=== PATIENT | male | born 1950 | race Two or more races ===

== ENCOUNTER 2023-04-09 10:16 | Outpatient (RCR) | payer OTHER, SELFPAY | END 2023-04-09 23:59 | disposition home or self-care (01) | LOC: RPT 10:16 | PROVIDERS: ATTENDING PHYSICIAN Family Medicine | DX: R26.9 Unspecified abnormalities of gait and mobility (principal); Z73.6 Limitation of activities due to disability; M62.81 Muscle weakness (generalized) | CPT/HCPCS: 97110; 97112; 97162 ==

== ENCOUNTER 2023-05-09 15:05 | Outpatient (RCR) | payer OTHER, SELFPAY | END 2023-05-09 23:59 | disposition home or self-care (01) | LOC: RPT 15:05 | PROVIDERS: ATTENDING PHYSICIAN Family Medicine | DX: R26.9 Unspecified abnormalities of gait and mobility (principal); Z73.6 Limitation of activities due to disability | CPT/HCPCS: 97110; 97112 ==

== ENCOUNTER 2023-05-22 16:08 | Outpatient (RCR) | payer OTHER, SELFPAY | END 2023-05-22 23:59 | disposition home or self-care (01) | LOC: RPT 16:08 | PROVIDERS: ATTENDING PHYSICIAN Family Medicine | DX: R26.9 Unspecified abnormalities of gait and mobility (principal); Z73.6 Limitation of activities due to disability | CPT/HCPCS: 97110; 97112 ==

== ENCOUNTER 2023-07-04 16:09 | Outpatient (RCR) | payer OTHER, SELFPAY | END 2023-07-04 23:59 | disposition home or self-care (01) | LOC: RPT 16:09 | PROVIDERS: ATTENDING PHYSICIAN Family Medicine | DX: R26.9 Unspecified abnormalities of gait and mobility (principal); Z73.6 Limitation of activities due to disability | CPT/HCPCS: 97110; 97112 ==

== ENCOUNTER 2023-08-08 16:28 | Outpatient (RCR) | payer OTHER, SELFPAY | END 2023-08-08 23:59 | disposition home or self-care (01) | LOC: RPT 16:28 | PROVIDERS: ATTENDING PHYSICIAN Family Medicine | DX: R26.9 Unspecified abnormalities of gait and mobility (principal); Z73.6 Limitation of activities due to disability | CPT/HCPCS: 97110; 97112 ==

== ENCOUNTER 2023-09-05 15:19 | Outpatient (RCR) | payer OTHER, SELFPAY | END 2023-09-05 23:59 | disposition home or self-care (01) | LOC: RPT 15:19 | PROVIDERS: ATTENDING PHYSICIAN Family Medicine | DX: R26.89 Other abnormalities of gait and mobility (principal); Z73.6 Limitation of activities due to disability; R26.2 Difficulty in walking, not elsewhere classified; M62.81 Muscle weakness (generalized) | CPT/HCPCS: 97110; 97112 ==

== ENCOUNTER 2024-01-01 12:07 | Outpatient (RCR) | payer MEDICARE, BC, SELFPAY | END 2024-01-01 23:59 | disposition home or self-care (01) | LOC: RPT 12:07 | PROVIDERS: ATTENDING PHYSICIAN Family Medicine | DX: R26.9 Unspecified abnormalities of gait and mobility (principal); Z73.6 Limitation of activities due to disability | CPT/HCPCS: 97110; 97161 ==

== ENCOUNTER 2024-01-16 15:06 | Outpatient (RCR) | payer MEDICARE, BC, SELFPAY | END 2024-01-16 23:59 | disposition home or self-care (01) | LOC: RPT 15:06 | PROVIDERS: ATTENDING PHYSICIAN Family Medicine | DX: R26.9 Unspecified abnormalities of gait and mobility (principal); Z73.6 Limitation of activities due to disability | CPT/HCPCS: 97110; 97112; 97530 ==

== ENCOUNTER 2024-02-28 14:09 | Outpatient (RCR) | payer MEDICARE, BC, SELFPAY | END 2024-02-28 23:59 | disposition home or self-care (01) | LOC: RPT 14:09 | PROVIDERS: ATTENDING PHYSICIAN Family Medicine | DX: R26.89 Other abnormalities of gait and mobility (principal); R26.9 Unspecified abnormalities of gait and mobility (principal); Z73.6 Limitation of activities due to disability; R26.2 Difficulty in walking, not elsewhere classified; M62.81 Muscle weakness (generalized) | CPT/HCPCS: 97110; 97112 ==

== ENCOUNTER 2024-04-08 15:08 | Outpatient (RCR) | payer MEDICARE, BC, SELFPAY | END 2024-04-08 23:59 | disposition home or self-care (01) | LOC: RPT 15:08 | PROVIDERS: ATTENDING PHYSICIAN Family Medicine | DX: R26.9 Unspecified abnormalities of gait and mobility (principal); R26.89 Other abnormalities of gait and mobility (principal); Z73.6 Limitation of activities due to disability; R26.2 Difficulty in walking, not elsewhere classified; M62.81 Muscle weakness (generalized) | CPT/HCPCS: 97110; 97112; 97530 ==

== ENCOUNTER 2024-05-06 15:09 | Outpatient (RCR) | payer MEDICARE, BC, SELFPAY | END 2024-05-06 23:59 | disposition home or self-care (01) | LOC: RPT 15:09 | PROVIDERS: ATTENDING PHYSICIAN Family Medicine | DX: R26.9 Unspecified abnormalities of gait and mobility (principal); Z73.6 Limitation of activities due to disability; R26.89 Other abnormalities of gait and mobility; R26.2 Difficulty in walking, not elsewhere classified; M62.81 Muscle weakness (generalized) | CPT/HCPCS: 97110; 97112; 97530 ==

== ENCOUNTER 2024-06-05 15:07 | Outpatient (RCR) | payer MEDICARE, BC, SELFPAY | END 2024-06-05 23:59 | disposition home or self-care (01) | LOC: RPT 15:07 | PROVIDERS: ATTENDING PHYSICIAN Family Medicine | DX: R26.9 Unspecified abnormalities of gait and mobility (principal); R26.89 Other abnormalities of gait and mobility; M62.81 Muscle weakness (generalized); R26.2 Difficulty in walking, not elsewhere classified; Z73.6 Limitation of activities due to disability | CPT/HCPCS: 97110; 97112 ==

== ENCOUNTER 2024-06-19 15:19 | Outpatient (RCR) | payer MEDICARE, BC, SELFPAY | END 2024-06-19 23:59 | disposition home or self-care (01) | LOC: RPT 15:19 | PROVIDERS: ATTENDING PHYSICIAN Family Medicine | DX: R26.89 Other abnormalities of gait and mobility (principal); R26.9 Unspecified abnormalities of gait and mobility (principal); Z73.6 Limitation of activities due to disability; R26.2 Difficulty in walking, not elsewhere classified; M62.81 Muscle weakness (generalized) | CPT/HCPCS: 97110; 97112 ==

== ENCOUNTER 2024-07-30 14:15 | Outpatient (RCR) | payer MEDICARE, BC, SELFPAY | END 2024-07-30 23:59 | disposition home or self-care (01) | LOC: RPT 14:15 | PROVIDERS: ATTENDING PHYSICIAN Family Medicine | DX: R26.89 Other abnormalities of gait and mobility (principal); Z73.6 Limitation of activities due to disability; R26.2 Difficulty in walking, not elsewhere classified; M62.81 Muscle weakness (generalized); R26.9 Unspecified abnormalities of gait and mobility | CPT/HCPCS: 97110; 97112 ==

== ENCOUNTER 2024-09-02 15:07 | Outpatient (RCR) | payer MEDICARE, BC, SELFPAY | END 2024-09-02 23:59 | disposition home or self-care (01) | LOC: RPT 15:07 | PROVIDERS: ATTENDING PHYSICIAN Family Medicine | DX: R26.89 Other abnormalities of gait and mobility (principal); R26.2 Difficulty in walking, not elsewhere classified; M62.81 Muscle weakness (generalized); R26.9 Unspecified abnormalities of gait and mobility; Z73.6 Limitation of activities due to disability | CPT/HCPCS: 97110; 97112 ==